=== PATIENT | female | born 1970 | race Hispanic/Latino ===

== ENCOUNTER 2017-09-17 23:32 | Emergency (ER) | payer OTHER ==
[~2017-09-17] VITALS: Ht 165.1 cm; Wt 72.6 kg
[2017-09-18 00:18] LABS: ABSOLUTE BASOPHIL COUNT 0.1 /CUMM (0.0-0.2); ABSOLUTE EOSINOPHIL COUNT 0.2 /CUMM (0.0-0.7); ABSOLUTE GRANULOCYTE CT 6.3 /CUMM (1.4-6.5); ABSOLUTE MONOCYTE COUNT 0.5 /CUMM (0.10-0.60); BASOPHIL % 0.7 % (0.0-2.0); EOSINOPHIL % 1.7 % (0-5); GRANULOCYTE % 62.2 % (42.2-75.2); HEMATOCRIT 39.5 % (37-47); MEAN CORPUSCULAR HGB 28.7 PG (27.0-31.0); MEAN CORPUSCULAR HGB CONC 33.9 G/DL (33.0-37.0); MEAN CORPUSCULAR VOLUME 84.6 FL (81.0-99.0); MEAN PLATELET VOLUME 8.7 FL (7.4-10.4); PLATELET COUNT 347 /CUMM (130-400); RBC DISTRIBUTION WIDTH 12.9 % (11.5-14.5); RED BLOOD CELL CT 4.66 /CUMM (4.20-5.40); WHITE BLOOD CELL COUNT 10.1 /CUMM (4.8-10.8)
--- NOTE | 2017-09-18 01:43 | ED CARDIAC/CP/PALPITATIONS ---
History of Present Illness General Chief Complaint: Palpitations Stated Complaint: PT C/O " IRREGULAR HEART BEATS" Source: patient Exam Limitations: no limitations Vital Signs & Intake/Output Vital Signs & Intake/Output Vital Signs Date Time Temp Pulse Resp B/P B/P Pulse O2 O2 Flow FiO2 Mean Ox Delivery Rate 09/18 0149 98.0 74 20 130/78 98 Room Air 09/18 0009 98.5 74 18 149/90 98 Room Air Allergies Coded Allergies: No Known Allergies (09/18/17) Triage Note: TRIAGE: PATIENT TO ER FROM HOME REPORTING 8/10 CHEST TIGHTNESS AND "FEEL IRREGULAR HEARTBEAT." PATIENT REPORTS HX OF SAME SINCE MARCH, INCREASED PAST MONTH, TONIGHT BEGAN INTERMITTENT SINCE 9PM. REPORTING INTERMITTENT SOB, NO ACUTE DISTRESS. ALSO C/O DIZZINESS AND IS BEING TREATED FOR VERTIGO AND MIGRAINES CURRENTLY. Triage Nurses Notes Reviewed? yes HPI: Patient presents complaining of intermittent palpitations. Patient describes them as is her heart is jumping around and skipping beats. There is no pain. There is no shortness of breath. There is no lightheadedness. Tonight the symptoms worsened so she comes in for evaluation. Past History Travel History Traveled to [place] past 21 day No Medical History Any Pertinent Medical History? 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 No Review of Systems Review of Systems Constitutional: Reports: no symptoms. EENTM: Reports: no symptoms. Respiratory: Reports: no symptoms. Cardiovascular: Reports: see HPI, palpitations. GI: Reports: no symptoms. Genitourinary: Reports: no symptoms. Musculoskeletal: Reports: no symptoms. Skin: Reports: no symptoms. Neurological/Psychological: Reports: no symptoms. Hematologic/Endocrine: Reports: no symptoms. Immunologic/Allergic: Reports: no symptoms. All Other Systems: Reviewed and Negative Physical Exam Physical Exam General Appearance: well developed/nourished, alert, awake, anxious, mild distress Head: atraumatic, normal appearance Eyes: Bilateral: PERRL, EOMI. Ears, Nose, Throat: normal pharynx, normal ENT inspection, hearing grossly normal Neck: normal inspection, supple, full range of motion Respiratory: normal breath sounds, chest non-tender, no respiratory distress, lungs clear Cardiovascular: regular rate/rhythm, normal peripheral pulses Gastrointestinal: normal bowel sounds, soft, non-tender, no organomegaly Back: normal inspection, normal range of motion Extremities: normal inspection, normal capillary refill, normal range of motion, no edema Neurologic/Psych: no motor/sensory deficits, awake, alert, oriented x 3, normal gait, normal mood/affect Skin: intact, normal color, warm/dry Core Measures ACS in differential dx? No CVA/TIA Diagnosis No Sepsis Present: No Sepsis Focused Exam Completed? No Progress Differential Diagnosis: atrial fibrillation, hyperthyroid, myocarditis, pericarditis, pulmonary embolism Plan of Care: Orders Procedure Date/time Status HUMAN BETA HCG SCREEN 09/18 0006 Complete TROPONIN LEVEL 09/18 0003 Complete COMPREHENSIVE METABOLIC PANEL 09/18 0003 Complete CBC WITHOUT DIFFERENTIAL 09/18 0003 Complete EKG 09/17 2335 Active Laboratory Tests 09/18/17 0006: Anion Gap 12, Estimated GFR > 60, BUN/Creatinine Ratio 15.7, Glucose 136 H, Calcium 9.1, Total Bilirubin 0.5, AST 19, ALT 24, Alkaline Phosphatase 46, Troponin I < 0.01, Total Protein 6.9, Albumin 3.8, Globulin 3.1, Albumin/ Globulin Ratio 1.2, Total Beta HCG NEGATIVE, CBC w Diff NO MAN DIFF REQ, RBC 4.66, MCV 84.6, MCH 28.7, MCHC 33.9, RDW 12.9, MPV 8.7, Gran % 62.2, Lymphocytes % 30.1, Monocytes % 5.3, Eosinophils % 1.7, Basophils % 0.7, Absolute Granulocytes 6.3, Absolute Lymphocytes 3.0, Absolute Monocytes 0.5, Absolute Eosinophils 0.2, Absolute Basophils 0.1 09/18/17 0004: Total Beta HCG Cancelled Initial ED EKG: NSR, no ST T wave changes Departure Departure Disposition: HOME OR SELF CARE Condition: Stable Clinical Impression Primary Impression: Palpitation Referrals: Sterling Sweeney MD (PCP/Family) Lena MARCUS,Cb Allen Additional Instructions: TAKE OVER THE COUNTER MAGNESIUM FOLLOW UP WITH DR. LENA RETURN IF SYMPTOMS WORSEN OR FOR ANY CONCERNS Departure Forms: Customer Survey General Discharge Information Critical Care Note Critical Care Note Critical Care Time: non-applicable
[2017-09-18 01:49] VITALS: BP 130/78
== END 2017-09-18 01:49 ==
LOC: ERH 23:32
PROVIDERS: Emergency Medicine
DX: R00.2 Palpitations (principal)
CPT/HCPCS: 93005; 93010